=== PATIENT | female | born 1985 | race Caucasian/White ===

== ENCOUNTER 2016-06-15 14:02 | Emergency (ER) | payer MEDICAID | END 2016-06-15 16:33 | disposition home or self-care (01) | DX: J06.9 Acute upper respiratory infection, unspecified (principal); B97.89 Other viral agents as the cause of diseases classified elsewhere ==

== ENCOUNTER 2017-01-13 20:13 | Emergency (ER) | payer MEDICAID ==
[2017-01-13 21:38] LABS: BILIRUBIN,URINE NEGATIVE (NEGATIVE); HCG UR QUAL NEGATIVE; UA w/ MICROSCOPIC CHARGE YES
[2017-01-13 21:48] LABS: BASOPHILS # (AUTO) 0.1 10^3/uL (0.0-0.1); BASOPHILS % (AUTO) 0.7 %; EOSINOPHILS # (AUTO) 0.2 10^3/uL (0.0-0.7); HCT - HEMATOCRIT 36.3 % (37.0-47.0); LYMPHOCYTES # (AUTO) 3.7 10^3/uL (1.5-3.5); LYMPHOCYTES % (AUTO) 43.9 %; MEAN CORPUSCULAR HEMOGLOBIN 29.4 pg (27.0-31.0); MEAN CORPUSCULAR HGB CONC 33.2 g/dL (32.0-36.0); MEAN CORPUSCULAR VOLUME 88.6 fL (81.0-99.0); MEAN PLATELET VOLUME 7.2 fL (7.9-10.8); MONOCYTES # (AUTO) 0.4 10^3/uL (0.0-1.0); MONOCYTES % (AUTO) 4.8 %; NEUTROPHILS # (AUTO) 4.1 10^3/uL (1.5-6.6); NEUTROPHILS % (AUTO) 48.6 %; RED CELL DISTRIBUTION WIDTH 14.6 % (12.0-15.0); UNCORRECTED WHITE BLOOD COUNT 8.4 x10^3/uL; WHITE BLOOD COUNT 8.4 x10^3/uL (4.8-10.8)
[2017-01-13 21:57] LABS: UR CULTURE IF IND NOT INDICATED
[2017-01-13 21:59] LABS: ALBUMIN/GLOBULIN RATIO 1.3 (1.0-2.2); BILIRUBIN,TOTAL 0.2 mg/dL (0.2-1.0); CALCIUM 9.2 mg/dL (8.5-10.3); CREATININE 0.6 mg/dL (0.4-1.0); POTASSIUM 3.8 mmol/L (3.5-5.0); TOTAL PROTEIN 8.1 g/dL (6.7-8.2)
--- NOTE | 2017-01-13 22:13 | ED Physician Documentation ---
PD HPI FEMALE - Stated complaint Stated Complaint: ABD PAIN - Chief complaint Chief Complaint: Abd Pain - History obtained from History obtained from: Patient - History of Present Illness Timing - onset: How many weeks ago (1) Timing - duration: Weeks (1) Timing - details: Gradual onset, Still present Associated symptoms: Pelvic pain (today), Dysuria, Urinary frequency Contributing factors: Sexually active (female only) Similar symptoms before: Diagnosis (ovarian cyst) Recently seen: Not recently seen - Additional information Additional information: 31-year-old female has had symptoms of urinary frequency and urgency with dysuria for the past week. The symptoms have been minimal and today she developed some symptoms of lower pelvic pain. These pains are similar to what she has had when she has had an ovarian cyst previously. She had to call out of work this evening because of this uncomfortableness in her suprapubic area. She is about midcycle right now. She is sexually active but not with males. Review of Systems Constitutional: denies: Fever, Chills Eyes: denies: Decreased vision Ears: denies: Ear pain Nose: denies: Congestion Throat: denies: Sore throat Respiratory: denies: Cough GI: reports: Abdominal Pain. denies: Nausea, Vomiting : reports: Dysuria, Frequency Skin: denies: Rash Musculoskeletal: denies: Neck pain, Back pain, Extremity pain PD PAST MEDICAL HISTORY - Past Medical History Cardiovascular: None Respiratory: None Neuro: None Endocrine/Autoimmune: None GI: Ulcers CLOTHES MODEL: Ovarian cysts, Other : None HEENT: None Psych: Depression, Anxiety, Panic attacks Musculoskeletal: Chronic back pain Derm: None - Past Surgical History Past Surgical History: No - Present Medications Home Medications: Ambulatory Orders Medication Instructions Recorded Confirmed FLUoxetine [PROzac] 40 mg PO DAILY 03/05/14 01/13/17 Ibuprofen [Motrin] 800 mg PO Q8H PRN #30 tablet 09/05/14 01/13/17 Gabapentin 300 mg PO TID #90 capsule 06/20/15 01/13/17 LORazepam [Ativan] 0.5 - 1 mg PO Q6H PRN #10 tablet 09/28/15 01/13/17 QUEtiapine [SEROquel] 1 tab PO DAILY 01/13/17 01/13/17 Sulfamethoxazole/Trimethoprim 1 each PO BID #10 tablet 01/13/17 [Sulfamethoxazole-Tmp Ds Tablet] - Allergies Allergies/Adverse Reactions: Allergies Allergy/AdvReac Type Severity Reaction Status Date / Time red dye Allergy Intermediate Anxiety Verified 01/13/17 20:27 - Social History Does the pt smoke?: No Smoking Status: Current every day smoker Does the pt drink ETOH?: No Does the pt have substance abuse?: No - Immunizations Immunizations are current?: Yes Immunizations: TDAP current <10years - POLST Patient has POLST: No PD ED PE NORMAL - Vitals Vital signs reviewed: Yes (hypertensive) - General General: No acute distress, Well developed/nourished - HEENT HEENT: Atraumatic, PERRL - Neck Neck: Supple, no meningeal sign - Cardiac Cardiac: RRR, No murmur - Respiratory Respiratory: No respiratory distress, Clear bilaterally - Abdomen Abdomen: Soft, Other (minimal suprapubic tenderness) - Back Back: No CVA TTP, No spinal TTP - Derm Derm: Normal color, Warm and dry, No rash - Extremities Extremities: No deformity, No edema - Neuro Neuro: Alert and oriented X 3, No motor deficit, No sensory deficit, Normal speech Eye Opening: Spontaneous Motor: Obeys Commands Verbal: Oriented GCS Score: 15 - Psych Psych: Normal mood, Normal affect Results - Vitals Vitals: Vital Signs - 24 hr 01/13/17 01/13/17 20:21 21:49 Temperature 36.8 C 36.8 C Heart Rate 80 72 Respiratory 16 14 Rate Blood Pressure 127/88 H 128/83 H O2 Saturation 100 100 Oxygen O2 Source Room air - Labs Labs: Laboratory Tests 01/13/17 01/13/17 01/13/17 21:23 21:41 21:41 WBC 8.4 RBC 4.10 L Hgb 12.0 Hct 36.3 L MCV 88.6 MCH 29.4 MCHC 33.2 RDW 14.6 Plt Count 356 MPV 7.2 L Neut # 4.1 Lymph # 3.7 H [place] # 0.4 Eos # 0.2 Baso # 0.1 Absolute Nucleated RBC 0.00 Nucleated RBC % 0.0 Sodium 135 Potassium 3.8 Chloride 101 Carbon Dioxide 27 Anion Gap 7.0 BUN 11 Creatinine 0.6 Estimated GFR (MDRD) 118 Glucose 88 Calcium 9.2 Total Bilirubin 0.2 AST 26 ALT 31 Alkaline Phosphatase 59 Total Protein 8.1 Albumin 4.6 Globulin 3.5 Albumin/Globulin Ratio 1.3 Lipase 11 L Urine Color LT. YELLOW Urine Clarity HAZY Urine pH 7.0 Ur Specific [place] 1.015 Urine Protein NEGATIVE Urine Glucose (UA) NEGATIVE Urine Ketones NEGATIVE Urine Occult Blood NEGATIVE Urine Nitrite NEGATIVE Urine Bilirubin NEGATIVE Urine Urobilinogen 0.2 (NORMAL) Ur Leukocyte Esterase SMALL H Urine RBC 0-5 Urine WBC 6-10 H Ur Squamous Epith Cells MANY Squamous H Amorphous Sediment Few Urine Bacteria Moderate H Ur Microscopic Review INDICATED Urine Culture Comments NOT INDICATED Urine HCG, Qual NEGATIVE Procedures - Bedside sono Bedside sono by EMP: With use of bedside ultrasound the pelvis is imaged and there is no free fluid in the pelvis. The ovaries are not imaged as I am not able to make them out. PD MEDICAL DECISION MAKING - ED course Complexity details: reviewed old records, reviewed results, re-evaluated patient , considered differential, d/w patient ED course: 31-year-old female with a low pain threshold has developed suprapubic pain and has urinary tract infection on evaluation of the urine this evening. She has had prior issues with narcotic and I have indicated to her that we will be able to provide her only with a take-home amount of Percocet and no prescription. She is okay with this. We have provided Septra orally here in the emergency department and we will provide a 5 day course. Departure - Departure Disposition: 01 Home, Self Care Clinical Impression: Urinary tract infection Qualifiers: Urinary tract infection type: acute cystitis Hematuria presence: without hematuria Qualified Code(s): N30.00 - Acute cystitis without hematuria Ovarian cyst Qualifiers: Laterality: unspecified laterality Qualified Code(s): N83.209 - Unspecified ovarian cyst, unspecified side Condition: Stable Instructions: ED UTI Cystitis Female, ED Cyst Ovarian Follow-Up: CHARY TOM [Primary Care Provider] - Prescriptions: Sulfamethoxazole/Trimethoprim [Sulfamethoxazole-Tmp Ds Tablet] 1 each PO BID # 10 tablet Forms: Activity restrictions
[2017-01-13] MEDS ORDERED: oxyCODONE/ACET 5/325 Prepack 4 PO STA (22:17)
[2017-01-13] MEDS ORDERED: SULFAM/TRIM 800/160 Prepack 2 PO ONE ×2 (22:17→22:35)
[2017-01-13] MEDS ORDERED: oxyCODONE/ACET 5/325 Prepack 4 PO ONE (22:35)
[2017-01-13 22:42] VITALS: BP 126/84
== END 2017-01-13 22:39 | disposition home or self-care (01) ==
LOC: ED 20:13
DX: N30.00 Acute cystitis without hematuria (principal); N83.209 Unspecified ovarian cyst, unspecified side; Z87.11 Personal history of peptic ulcer disease; F17.200 Nicotine dependence, unspecified, uncomplicated
CPT/HCPCS: 36415; 80053; 81001; 81003; 81025; 83690; 85025; 87086; 99283

== ENCOUNTER 2019-11-04 18:04 | Outpatient (CLI) | payer MEDICAID | END 2019-11-04 18:05 | disposition critical access hospital (66) | LOC: EMS 18:04 | PROVIDERS: ATTEND Surgery | DX: R07.9 Chest pain, unspecified (principal); R20.2 Paresthesia of skin; R20.0 Anesthesia of skin | CPT/HCPCS: A0425; A0427; A0999 ==

== ENCOUNTER 2019-11-04 18:17 | Emergency (ER) | payer MEDICAID ==
[2019-11-04 18:39] LABS: BASOPHILS % (AUTO) 0.6 %; EOSINOPHILS # (AUTO) 0.1 10^3/uL (0.0-0.7); EOSINOPHILS % (AUTO) 1.2 %; HGB - HEMOGLOBIN 12.3 g/dL (12.0-16.0); LYMPHOCYTES # (AUTO) 2.4 10^3/uL (1.5-3.5); LYMPHOCYTES % (AUTO) 34.6 %; MEAN CORPUSCULAR HEMOGLOBIN 30.5 pg (27.0-31.0); MEAN CORPUSCULAR HGB CONC 32.5 g/dL (32.0-36.0); MEAN CORPUSCULAR VOLUME 93.8 fL (81.0-99.0); MEAN PLATELET VOLUME 9.3 fL (7.9-10.8); MONOCYTES # (AUTO) 0.4 10^3/uL (0.0-1.0); MONOCYTES % (AUTO) 6.1 %; NEUTROPHILS % (AUTO) 57.1 %; PLT - PLATELET COUNT 310 10^3/uL (130-450); RED BLOOD COUNT 4.03 10^6/uL (4.20-5.40); RED CELL DISTRIBUTION WIDTH 13.2 % (12.0-15.0); WHITE BLOOD COUNT 6.9 x10^3/uL (4.8-10.8)
[2019-11-04 18:52] LABS: ALBUMIN 4.2 g/dL (3.2-5.5); ALBUMIN/GLOBULIN RATIO 1.3 (1.0-2.2); BILIRUBIN,TOTAL 0.5 mg/dL (0.2-1.0); CALCIUM 9.1 mg/dL (8.5-10.3); CREATININE 0.6 mg/dL (0.4-1.0); TOTAL PROTEIN 7.4 g/dL (6.7-8.2)
[2019-11-04 18:56] LABS: MUDS CUTOFF CONCENTRATIONS CUTOFF CONC BELOW:
--- NOTE | 2019-11-04 19:10 | XRAY Report ---
PROCEDURE: Chest 1 View X-Ray INDICATIONS: Chest Pain TECHNIQUE: One view of the chest was acquired. COMPARISON: 06/15/2016 FINDINGS: Surgical changes and devices: None. Lungs and pleura: No pleural effusions or pneumothorax. Lungs are clear. Mediastinum: Mediastinal contours appear normal. Heart size is normal. Bones and chest wall: No suspicious bony lesions. Overlying soft tissues appear unremarkable. IMPRESSION: No acute process. Reviewed by: Gema Grajeda MD on 11/04/2019 6:09 PM KAJAL Approved by: Gema Grajeda MD on 11/04/2019 6:09 PM AKOSCAR Station ID: [id number]
--- NOTE | 2019-11-04 19:11 | ED Physician Documentation ---
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 Pressure occurred across the chest bilaterally and radiated to both hands. Hands felt numb and stiff according to patient. She also felt numbness on both cheeks. No shortness of breath, nausea, vomiting, or diaphoresis. No weakn ess. She was sitting in the car talking to her ex-girlfriend at the time, denies stress or arguments. Sx resolved bellhop captain after a few minutes w/o any particular intervention. No hx/o heart disease but states she was told she had heart damage when she was anorexic. No recent immobility or surgery. No f, c, cough or URI sx, abd pain, n/v/d. Family history of maternal grandfather who of heart disease in his 50s. Review of Systems Constitutional: reports: Reviewed and negative Cardiac: reports: Chest pain / pressure, Palpitations. denies: Pedal edema, Calf pain Respiratory: reports: Reviewed and negative GI: reports: Reviewed and negative : reports: Reviewed and negative Musculoskeletal: reports: Reviewed and negative Neurologic: reports: Numbness. 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, Other : None HEENT: None Psych: Depression, Anxiety, Panic attacks Musculoskeletal: Chronic back pain Derm: None - Past Surgical History Past Surgical History: No - Present Medications Home Medications: Ambulatory Orders Medication Instructions Recorded Confirmed FLUoxetine [PROzac] 40 mg PO DAILY 03/05/14 01/13/17 Ibuprofen [Motrin] 800 mg PO Q8H PRN #30 tablet 09/05/14 01/13/17 Gabapentin 300 mg PO TID #90 capsule 06/20/15 01/13/17 LORazepam [Ativan] 0.5 - 1 mg PO Q6H PRN #10 tablet 09/28/15 01/13/17 QUEtiapine [SEROquel] 1 tab PO DAILY 01/13/17 01/13/17 Sulfamethoxazole/Trimethoprim 1 each PO BID #10 tablet 01/13/17 [Sulfamethoxazole-Tmp Ds Tablet] - Allergies Allergies/Adverse Reactions: Allergies Allergy/AdvReac Type Severity Reaction Status Date / Time red dye Allergy Intermediate Anxiety Verified 01/13/17 20:27 - Social History Does the pt smoke?: No Smoking Status: Never smoker Does the pt drink ETOH?: No Does the pt have substance abuse?: No - Immunizations Immunizations are current?: Yes Immunizations: TDAP current <10years - POLST Patient has POLST: No PD ED PE NORMAL - Vitals Vital signs reviewed: Yes - General General: Alert and oriented X 3, No acute distress, Well developed/nourished - HEENT HEENT: Atraumatic, PERRL, EOMI, Moist mucous membranes - Neck Neck: Supple, no meningeal sign, No JVD - Cardiac Cardiac: RRR, No murmur, No gallop, No rub, Strong equal pulses - Respiratory Respiratory: No respiratory distress, Clear bilaterally - Abdomen Abdomen: Normal bowel sounds, Soft, Non tender, Non distended - Extremities Extremities: No deformity, No tenderness to palpate, Normal ROM s pain, No edema, No calf tenderness / cord - Neuro Neuro: Alert and oriented X 3 Eye Opening: Spontaneous Motor: Obeys Commands Verbal: Oriented GCS Score: 15 - Psych Psych: Normal mood, Normal affect Results - Vitals Vitals: Vital Signs - 24 hr 11/04/19 11/04/19 11/04/19 18:23 18:56 19:26 Temperature 37.1 C Heart Rate 79 83 74 Respiratory 18 23 19 Rate Blood Pressure 132/83 H 131/84 H 130/60 O2 Saturation 99 100 99 11/04/19 19:30 Temperature Heart Rate 82 Respiratory 20 Rate Blood Pressure O2 Saturation 100 Oxygen O2 Source Room air - Labs Labs: Laboratory Tests 11/04/19 11/04/19 11/04/19 18:35 18:35 18:35 WBC 6.9 RBC 4.03 L Hgb 12.3 Hct 37.8 MCV 93.8 MCH 30.5 MCHC 32.5 RDW 13.2 Plt Count 310 MPV 9.3 Neut # (Auto) 4.0 Lymph # (Auto) 2.4 [place] # (Auto) 0.4 Eos # (Auto) 0.1 Baso # (Auto) 0.0 Absolute Nucleated RBC 0.00 Nucleated RBC % 0.0 Sodium 137 Potassium 3.3 L Chloride 103 Carbon Dioxide 24 Anion Gap 10.0 BUN 10 Creatinine 0.6 Estimated GFR (MDRD) 116 Glucose 94 Calcium 9.1 Total Bilirubin 0.5 AST 17 ALT 16 Alkaline Phosphatase 52 Troponin I High Sens < 2.3 L Total Protein 7.4 Albumin 4.2 Globulin 3.2 Albumin/Globulin Ratio 1.3 Lipase 20 L Ur Specific [place] Urine HCG, Qual Urine Opiates Screen Ur Oxycodone Screen Urine Methadone Screen Ur Propoxyphene Screen Ur Barbiturates Screen Ur Tricyclics Screen Ur Phencyclidine Scrn Ur Amphetamine Screen U Methamphetamines Scrn U Benzodiazepines Scrn Urine Cocaine Screen U Cannabinoids Screen 11/04/19 18:43 WBC RBC Hgb Hct MCV MCH MCHC RDW Plt Count MPV Neut # (Auto) Lymph # (Auto) [place] # (Auto) Eos # (Auto) Baso # (Auto) Absolute Nucleated RBC Nucleated RBC % Sodium Potassium Chloride Carbon Dioxide Anion Gap BUN Creatinine Estimated GFR (MDRD) Glucose Calcium Total Bilirubin AST ALT Alkaline Phosphatase Troponin I High Sens Total Protein Albumin Globulin Albumin/Globulin Ratio Lipase Ur Specific [place] 1.020 Urine HCG, Qual NEGATIVE Urine Opiates Screen NEGATIVE Ur Oxycodone Screen NEGATIVE Urine Methadone Screen NEGATIVE Ur Propoxyphene Screen NEGATIVE Ur Barbiturates Screen NEGATIVE Ur Tricyclics Screen NEGATIVE Ur Phencyclidine Scrn NEGATIVE Ur Amphetamine Screen NEGATIVE U Methamphetamines Scrn NEGATIVE U Benzodiazepines Scrn NEGATIVE Urine Cocaine Screen NEGATIVE U Cannabinoids Screen NEGATIVE PD MEDICAL DECISION MAKING - ED course Complexity details: reviewed results, re-evaluated patient, considered differential, d/w patient ED course: 34 yo F presented w/ atypical chest pain. HEART score of 0. Her EKG is NSR and labs are reassuring. Very low suspicion for cardiac event, no risk factors for PE and Well's score is 0. Neuro exam is non-focal. Suspect anxiety/panic attack. Provided reassurance to patient, advised follow up w/ PCP within 1 week. Return if new or worsening symptoms. Departure - Departure Disposition: 01 Home, Self Care Clinical Impression: Atypical chest pain Condition: Good Instructions: ED Chest Pain NonCardiac, ED Chest Pain Atypical Unkn Cause Comments: You presented with chest pressure, arm numbness/stiffness, and facial numbness, symptoms which had improved by the time of your arrival to the ER. Your labs are reassuring, your cardiac workup is negative with a normal EKG, chest xray, and cardiac enzymes. You do have a family history of heart disease so I recommend you follow up with your primary care doctor within one week and they may consider referral to keyboarding clerk if indicated. If you have new or worsening symptoms, return to the ER.
[2019-11-04 19:14] LABS: HCG UR QUAL NEGATIVE
[2019-11-04 19:15] LABS: AMPHETAMINE SCREEN,URINE NEGATIVE (NEGATIVE); BENZODIAZEPINES SCREEN, URINE NEGATIVE (NEGATIVE); COCAINE SCREEN URINE NEGATIVE (NEGATIVE); METHADONE SCREEN, URINE NEGATIVE (NEGATIVE); METHAMPHETAMINES SCREEN, URINE NEGATIVE (NEGATIVE); OPIATE SCREEN, URINE NEGATIVE (NEGATIVE); OXYCODONE SCREEN, URINE NEGATIVE (NEGATIVE); PROPOXYPHENE SCREEN, URINE NEGATIVE (NEGATIVE); TRICYCLIC ANTIDEPRESSANT,URINE NEGATIVE (NEGATIVE)
[2019-11-04 19:28] VITALS: BP 130/60
== END 2019-11-04 19:52 | disposition home or self-care (01) ==
LOC: EDUNIT# → ED 18:17
DX: R07.89 Other chest pain (principal); R20.0 Anesthesia of skin; Z82.49 Family history of ischemic heart disease and other diseases of the circulatory system; Z87.891 Personal history of nicotine dependence
CPT/HCPCS: 36415; 71045; 80053; 80306; 81025; 83690; 84484; 85025; 93005; 99284